=== PATIENT | male | born 1985 | race Two or more races ===

== ENCOUNTER 2019-09-25 14:56 | Emergency (ER) | payer SELFPAY ==
[~2019-09-25] VITALS: Ht 180.3 cm; Wt 82.0 kg
[2019-09-25 18:27] VITALS: BP 148/88
== END 2019-09-25 18:45 | disposition home or self-care (01) ==
LOC: ER 14:56
DX: R06.4 Hyperventilation (principal); R42 Dizziness and giddiness; R06.02 Shortness of breath; F19.10 Other psychoactive substance abuse, uncomplicated
CPT/HCPCS: 71045; 99283